=== PATIENT | male | born 1945 | race Caucasian/White ===

== ENCOUNTER 2023-09-09 09:14 | Inpatient (IN) | payer MEDICARE, SELFPAY ==
[2023-09-09 09:43] VITALS: BMI 23.8
[2023-09-09] MEDS ORDERED: Ondansetron ODT 4 MG TAB PO PRN (10:09)
[2023-09-09] MEDS ORDERED: Acetaminophen 325 MG TAB PO PRN (10:09)
[2023-09-09] MEDS ORDERED: Ondansetron PF 4 MG/2 ML Vial IVP PRN (10:09)
[2023-09-09] MEDS ORDERED: Acetaminophen 650 MG Suppository PR PRN (10:09)
[2023-09-09 10:58] LABS: Anion Gap 24 mmol/L (10-20); Calc. Creatinine Clearance 6 mL/min (70-130); Carbon Dioxide 11 mmol/L (23-31); Chloride 101 mmol/L (98-107); Estimated GFR 5; Glucose 151 mg/dL (83-110); Potassium 4.8 mmol/L (3.5-5.1); Sodium 131 mmol/L (136-145)
[2023-09-09 11:06] LABS: BUN (Urea Nitrogen) 192 mg/dL (8.4-25.7)
[2023-09-09] MEDS: Sodium Bicarbonate 150 MEQ in Dextrose 5% in Water 1,000 ML IV SCH (12:16)
[2023-09-09 12:35] LABS: Troponin I 0.044 ng/mL (< 0.028)
[2023-09-09 14:55] LABS: Anion Gap 23 mmol/L (10-20); Calc. Creatinine Clearance 6 mL/min (70-130); Calcium 8.7 mg/dL (7.8-10.44); Carbon Dioxide 16 mmol/L (23-31); Chloride 99 mmol/L (98-107); Estimated GFR 5; Glucose 159 mg/dL (83-110); Potassium 3.9 mmol/L (3.5-5.1); Sodium 134 mmol/L (136-145)
[2023-09-09 15:00] LABS: BUN (Urea Nitrogen) 182 mg/dL (8.4-25.7)
[2023-09-09] MEDS: Heparin 5,000 UNITS/ML VIAL SC SCH (15:15)
[2023-09-10 00:32] LABS: BUN (Urea Nitrogen) 163 mg/dL (8.4-25.7)
[2023-09-10 00:45] LABS: Anion Gap 23 mmol/L (10-20); Calc. Creatinine Clearance 7 mL/min (70-130); Calcium 8.1 mg/dL (7.8-10.44); Carbon Dioxide 18 mmol/L (23-31); Chloride 96 mmol/L (98-107); Estimated GFR 6; Glucose 167 mg/dL (83-110); Potassium 2.9 mmol/L (3.5-5.1); Sodium 134 mmol/L (136-145)
[2023-09-10 01:56] LABS: #Basophils Less than 0.03 10x3/uL (0.0-0.2); %Basophils 0.1 % (0.0-1.0); %Eosinophils 0.2 % (0.0-10.0); %Lymphocytes 5.7 % (21.0-51.0); %Monocytes 7.9 % (0.0-10.0); %Neutrophils 85.6 % (42.0-75.0); Hematocrit 29.2 % (42.0-52.0); Hemoglobin 10.7 g/dL (14.0-18.0); Mean Corpuscular HGB CONC 36.6 g/dL (32.0-36.0); Mean Corpuscular Hemoglobin 31.9 pg (27.0-31.0); Mean Corpuscular Volume 87.2 fL (78.0-98.0); Mean Platelet Volume 9.8 fL (7.4-10.4); Platelet Count 432 10x3/uL (130-400); RBC Distribution Width 11.8 % (11.5-14.5); Red Blood Cell (RBC) Count 3.35 mill/uL (4.70-6.10)
[2023-09-10 02:22] LABS: Anion Gap 22 mmol/L (10-20); Calc. Creatinine Clearance 8 mL/min (70-130); Calcium 7.7 mg/dL (7.8-10.44); Carbon Dioxide 20 mmol/L (23-31); Chloride 95 mmol/L (98-107); Estimated GFR 7; Glucose 180 mg/dL (83-110); Potassium 2.8 mmol/L (3.5-5.1); Sodium 134 mmol/L (136-145)
[2023-09-10 02:52] LABS: BUN (Urea Nitrogen) 156 mg/dL (8.4-25.7)
[2023-09-10] MEDS: Potassium Chloride 20 MEQ TAB PO SCH (03:12)
[2023-09-10] MEDS ORDERED: Potassium Chloride 20 MEQ in Lactated Ringer's 1,000 ML IV SCH (07:00)
[2023-09-10 09:08] LABS: BUN (Urea Nitrogen) 143 mg/dL (8.4-25.7)
[2023-09-10 09:11] LABS: Anion Gap 21 mmol/L (10-20); Calc. Creatinine Clearance 9 mL/min (70-130); Calcium 7.7 mg/dL (7.8-10.44); Carbon Dioxide 25 mmol/L (23-31); Chloride 92 mmol/L (98-107); Estimated GFR 8; Glucose 161 mg/dL (83-110); Potassium 3.1 mmol/L (3.5-5.1); Sodium 135 mmol/L (136-145)
[2023-09-10] MEDS: Potassium Chloride 20 MEQ in Lactated Ringer's 1,000 ML IV SCH (09:43)
[2023-09-10 14:55] VITALS: BMI 23.8
[2023-09-10 15:42] LABS: Potassium 3.2 mmol/L (3.5-5.1)
[2023-09-11 05:46] LABS: #Basophils Less than 0.03 10x3/uL (0.0-0.2); %Basophils 0.1 % (0.0-1.0); %Eosinophils 1.2 % (0.0-10.0); %Lymphocytes 10.4 % (21.0-51.0); %Monocytes 10.6 % (0.0-10.0); %Neutrophils 77.1 % (42.0-75.0); Hematocrit 30.2 % (42.0-52.0); Hemoglobin 10.3 g/dL (14.0-18.0); Mean Corpuscular HGB CONC 34.1 g/dL (32.0-36.0); Mean Corpuscular Hemoglobin 31.8 pg (27.0-31.0); Mean Corpuscular Volume 93.2 fL (78.0-98.0); Mean Platelet Volume 10.2 fL (7.4-10.4); Platelet Count 347 10x3/uL (130-400); RBC Distribution Width 11.9 % (11.5-14.5); Red Blood Cell (RBC) Count 3.24 mill/uL (4.70-6.10)
[2023-09-11 06:24] LABS: Iron 93 ug/dL (65-175); Iron Binding Capacity, Total 185 mcg/dL (261-462)
[2023-09-11 06:28] LABS: Anion Gap 17 mmol/L (10-20); BUN (Urea Nitrogen) 113 mg/dL (8.4-25.7); Calc. Creatinine Clearance 12 mL/min (70-130); Calcium 7.5 mg/dL (7.8-10.44); Carbon Dioxide 22 mmol/L (23-31); Chloride 100 mmol/L (98-107); Estimated GFR 12; Glucose 106 mg/dL (83-110); Iron 94 ug/dL (65-175); Iron Binding Capacity, Total 186 mcg/dL (261-462); Phosphorus 4.6 mg/dL (2.3-4.7); Potassium 3.4 mmol/L (3.5-5.1); Sodium 136 mmol/L (136-145)
[2023-09-11] MEDS: Tamsulosin HCl 0.4 MG CAP PO SCH (07:45)
[2023-09-11] MEDS: Potassium Chloride 20 MEQ TAB PO SCH (07:45)
[2023-09-11] MEDS: Pantoprazole DR 40 MG TAB PO SCH (07:45)
[2023-09-12 08:42] LABS: #Basophils Less than 0.03 10x3/uL (0.0-0.2); %Basophils 0.1 % (0.0-1.0); %Eosinophils 3.9 % (0.0-10.0); %Lymphocytes 13.5 % (21.0-51.0); %Monocytes 10.5 % (0.0-10.0); %Neutrophils 71.4 % (42.0-75.0); Hematocrit 31.1 % (42.0-52.0); Hemoglobin 10.1 g/dL (14.0-18.0); Mean Corpuscular HGB CONC 32.5 g/dL (32.0-36.0); Mean Corpuscular Hemoglobin 31.3 pg (27.0-31.0); Mean Corpuscular Volume 96.3 fL (78.0-98.0); Mean Platelet Volume 10.5 fL (7.4-10.4); Platelet Count 321 10x3/uL (130-400); RBC Distribution Width 11.9 % (11.5-14.5); Red Blood Cell (RBC) Count 3.23 mill/uL (4.70-6.10)
[2023-09-12 08:56] LABS: Anion Gap 13 mmol/L (10-20); BUN (Urea Nitrogen) 73 mg/dL (8.4-25.7); Calc. Creatinine Clearance 18 mL/min (70-130); Calcium 7.7 mg/dL (7.8-10.44); Carbon Dioxide 22 mmol/L (23-31); Chloride 109 mmol/L (98-107); Estimated GFR 18; Glucose 95 mg/dL (83-110); Sodium 140 mmol/L (136-145)
[2023-09-12] MEDS: Calcitriol 0.25 MCG CAP PO SCH (09:54)
[2023-09-13 05:23] LABS: #Basophils 0.05 10x3/uL (0.0-0.2); %Basophils 0.3 % (0.0-1.0); %Eosinophils 5.2 % (0.0-10.0); %Lymphocytes 10.5 % (21.0-51.0); %Neutrophils 74.2 % (42.0-75.0); Hematocrit 27.8 % (42.0-52.0); Hemoglobin 9.3 g/dL (14.0-18.0); Mean Corpuscular HGB CONC 33.5 g/dL (32.0-36.0); Mean Corpuscular Hemoglobin 31.3 pg (27.0-31.0); Mean Corpuscular Volume 93.6 fL (78.0-98.0); Mean Platelet Volume 10.8 fL (7.4-10.4); Platelet Count 275 10x3/uL (130-400); RBC Distribution Width 11.9 % (11.5-14.5); Red Blood Cell (RBC) Count 2.97 mill/uL (4.70-6.10)
[2023-09-13 05:38] LABS: Anion Gap 13 mmol/L (10-20); BUN (Urea Nitrogen) 57 mg/dL (8.4-25.7); Calc. Creatinine Clearance 21 mL/min (70-130); Calcium 7.4 mg/dL (7.8-10.44); Carbon Dioxide 18 mmol/L (23-31); Chloride 113 mmol/L (98-107); Estimated GFR 22; Glucose 93 mg/dL (83-110); Potassium 4.4 mmol/L (3.5-5.1); Sodium 140 mmol/L (136-145)
[2023-09-13] MEDS: cefTRIAXone\\ROCEPHIN 2 GM in Sodium Chloride 0.9% 100 ML IVPB SCH (08:38)
[2023-09-13 09:24] VITALS: BP 134/70; TEMP 97.4
== END 2023-09-13 12:59 | disposition home or self-care (01) | DRG 683 ==
LOC: IMCU/EMU 09:14 → SJJU 09-11 17:19
PROVIDERS: ADMIT Family Medicine; ATTEND Internal Medicine
DX: N17.9 Acute kidney failure, unspecified (principal); E87.20 Acidosis, unspecified; E87.5 Hyperkalemia; N13.6 Pyonephrosis; N25.81 Secondary hyperparathyroidism of renal origin; E86.0 Dehydration; E83.51 Hypocalcemia; D64.9 Anemia, unspecified; E87.6 Hypokalemia; Z79.01 Long term (current) use of anticoagulants; Z79.899 Other long term (current) drug therapy; N32.0 Bladder-neck obstruction; K57.30 Diverticulosis of large intestine without perforation or abscess without bleeding; N28.1 Cyst of kidney, acquired
CPT/HCPCS: 36415; 36416; 51701; 71045; 74176; 76770; 80048; 80053; 81001; 82010; 82550; 82728; 83540; 83550; 83605; 83690; 83735; 83970; 84100; 84145; 84484; 85025; 85610; 85730; 87040; 87077; 87086; 93005; 93010; 93306; 96365; 96367; 96374; 96375; 96376; G0103; J0692; J0696; J1644; J1815; J3370; J3480; J3490; J7070; J7120